=== PATIENT | male | born 1960 | race Caucasian/White ===

== ENCOUNTER → 2018-05-10 | Outpatient (CLI) | payer MEDICARE, BC ==
[2018-05-10] MEDS: LIDOCAINE WITH 8.4% SOD BICARB 3 ML DISP.SYRIN. INJ (08:00)
[2018-05-10] MEDS: IOHEXOL 300 MG/ML 10ML VIAL. IT (08:00)
== END | disposition home or self-care (01) ==
LOC: RAD 07:52
DX: M48.02 Spinal stenosis, cervical region (principal); M12.88 Other specific arthropathies, not elsewhere classified, other specified site
CPT/HCPCS: 72126; 72240; Q9967

== ENCOUNTER → 2018-05-22 | Outpatient (CLI) | payer MEDICARE, BC ==
[2018-05-22 15:50] LABS: ADD MAN DIFF? NO
[2018-05-22 15:53] LABS: BASO # 0.1 x10^3/uL (0.0-0.2); BASO % 1 % (0-3); EOS # 0.2 x10^3/uL (0.0-0.7); EOS % 2 % (0-3); HEMOGLOBIN 14.4 g/dL (13.0-17.5); LYMPH # 3.4 x10^3/uL (1.0-4.8); LYMPH % 42 % (24-48); MEAN CORPUSCULAR HEMOGLOBIN 33 pg (25-35); MEAN CORPUSCULAR HGB CONC 34 g/dL (31-37); MEAN CORPUSCULAR VOLUME 99 fL (79-100); MONO # 0.8 x10^3/uL (0.0-1.1); MONO % 10 % (0-9); NEUT # 3.7 x10^3uL (1.8-7.7); NEUT % 45 % (31-73); PLATELET COUNT 207 x10^3/uL (140-400); RED BLOOD COUNT 4.35 x10^6/uL (4.30-5.70); RED CELL DISTRIBUTION WIDTH 14.2 % (11.5-14.5); WHITE BLOOD COUNT 8.1 x10^3/uL (4.0-11.0)
[2018-05-22 16:16] LABS: ALBUMIN 3.4 g/dL (3.4-5.0); ALBUMIN/GLOBULIN RATIO 0.9 (1.0-1.7); ALK PHOS 43 U/L (46-116); ALT (SGPT) 27 U/L (16-63); ANION GAP 4 (6-14); AST (SGOT) 18 U/L (15-37); BLOOD UREA NITROGEN 25 mg/dL (8-26); BUN/CREATININE RATIO 17 (6-20); CALCIUM 8.9 mg/dL (8.5-10.1); CARBON DIOXIDE 31 mmol/L (21-32); CHLORIDE 105 mmol/L (98-107); CREATININE 1.5 mg/dL (0.7-1.3); GFR 48.6; GLUCOSE 122 mg/dL (70-99); POTASSIUM 4.5 mmol/L (3.5-5.1); SODIUM 140 mmol/L (136-145); TOTAL BILIRUBIN 0.4 mg/dL (0.2-1.0); TOTAL PROTEIN 7.1 g/dL (6.4-8.2)
[2018-05-24 01:14] LABS: MRSA BY PCR Negative (Negative)
== END | disposition home or self-care (01) ==
LOC: SURGPAT 14:22
DX: Z01.818 Encounter for other preprocedural examination (principal); M48.02 Spinal stenosis, cervical region
CPT/HCPCS: 36415; 80053; 85025; 87641

== ENCOUNTER 2018-06-02 07:16 | Inpatient (IN) | payer MEDICARE, BC ==
[2018-06-02] MEDS: IV RINGERS,LACTATED 1000ML 1,000 ML IV (07:00)
[~2018-06-02 07:16] MED LIST: LIDOCAINE 1% PF 2 ML VIAL. ID; MORPHINE SULFATE 2 MG/ML DISP.SYRIN. IV; fentaNYL PF VIAL 100 MCG/2 ML VIAL IV
[2018-06-02] MEDS ORDERED: PROPOFOL 20 ML IV (08:10)
[2018-06-02] MEDS ORDERED: DESFLURANE > 120 MINUTES IH (08:10)
[2018-06-02] MEDS ORDERED: ROCURONIUM 50 MG/5 ML VIAL. (08:10)
[2018-06-02] MEDS ORDERED: PROPOFOL 50 ML IV (08:10)
[2018-06-02] MEDS ORDERED: REMIFENTANIL 1 MG VIAL. IV ×2 (08:10→08:16)
[2018-06-02] MEDS ORDERED: KETOROLAC 30 MG/ML INJ FOR OR. INJ (08:11)
[2018-06-02] MEDS ORDERED: PHENYLEPHRINE 10 MG/ML VIAL. ×2 (08:11→08:15)
[2018-06-02] MEDS ORDERED: ONDANSETRON PF 4 MG/2 ML VIAL. (08:11)
[2018-06-02] MEDS ORDERED: DEXAMETHASONE SOD PHOS 20 MG/5 ML VIAL. (08:11)
[2018-06-02] MEDS ORDERED: LIDOCAINE 2% PF Vial for OR 5 ML VIAL. (08:11)
[2018-06-02] MEDS: SCOPOLAMINE 1.5MG PATCH. TD (08:16)
[2018-06-02] MEDS ORDERED: GLYCOPYRROLATE 1 MG/5 ML VIAL. (08:19)
[2018-06-02] MEDS: BUPIVAC MPF-EPI 0.5%-1:200000 30 ML VIAL. INJ (09:41)
[2018-06-02] MEDS: BACITRACIN 50,000 UNIT in IV NORMAL SALINE 1000ML BAG 1,000 ML IRR (09:41)
[2018-06-02] MEDS: GELATIN SPONGE SIZE 100. (09:41)
[2018-06-02] MEDS: THROMBIN TOPICAL 20,000 UNIT SPRAY.SYRN KIT TP (09:41)
[2018-06-02] MEDS ORDERED: fentaNYL PF VIAL 100 MCG/2 ML VIAL (11:21)
[2018-06-02] MEDS ORDERED: PROCHLORPERAZINE 10 MG/2 ML VIAL. (11:21)
[2018-06-02] MEDS ORDERED: CALCIUM CARBONATE 500 MG TAB.CHEW PO (11:30)
[2018-06-02] MEDS ORDERED: fentaNYL PF VIAL 100 MCG/2 ML VIAL IV (11:30)
[2018-06-02] MEDS ORDERED: MAGNESIUM HYDROXIDE 2,400 MG/30 ML ORAL.SUSP. PO (11:30)
[2018-06-02] MEDS ORDERED: SENNOSIDES/DOCUSATE 8.6/50MG TABLET. PO (11:30)
[2018-06-02] MEDS ORDERED: ACETAMINOPHEN 325 MG TABLET. PO (11:30)
[2018-06-02] MEDS ORDERED: 0.9 % SODIUM CHLORIDE 10 ML DISP.SYRIN. IV (11:30)
[2018-06-02] MEDS ORDERED: diphenhydrAMINE 50 MG/ML VIAL IV (11:30)
[2018-06-02] MEDS ORDERED: MAG HYDROX/ALUMINUM HYD/SIMETH 30 ML ORAL.SUSP PO (11:30)
[2018-06-02] MEDS ORDERED: diphenhydrAMINE HCL 25 MG CAPSULE PO (11:30)
[2018-06-02] MEDS: PROCHLORPERAZINE 10 MG/2 ML VIAL. IV (12:05)
[2018-06-02] MEDS: fentaNYL PF VIAL 100 MCG/2 ML VIAL IV ×2 (12:06→12:30)
[2018-06-02] MEDS: POTASSIUM CL 20MEQ D5-0.45NACL 1,000 ML IV (13:00)
[2018-06-02] MEDS ORDERED: ceFAZolin SODIUM 1 GM in IV DEXTROSE 5% 50 ML IV (14:00)
[2018-06-02] MEDS: GABAPENTIN 300 MG CAPSULE. PO ×3 (14:06→20:52)
[2018-06-02] MEDS: METHADONE 5 MG TABLET. PO ×3 (14:06→20:55)
[2018-06-02] MEDS: DOCUSATE SODIUM 100 MG CAPSULE. PO ×3 (14:07→20:56)
[2018-06-02] MEDS: HYDROcodone/APAP 7.5/325MG 1 TAB TABLET PO ×2 (15:35→21:30)
[2018-06-02] MEDS ORDERED: LISINOPRIL 10 MG TABLET PO (16:00)
[2018-06-02] MEDS: ceFAZolin SODIUM IV Push 1 GM VIAL. IVP (17:30)
[2018-06-02] MEDS: clonazePAM 1 MG TABLET PO (20:52)
[2018-06-02] MEDS: ALLOPURINOL 300 MG TABLET. PO (20:52)
[2018-06-02] MEDS: LISINOPRIL 10 MG TABLET PO (20:55)
[2018-06-02] MEDS: CYCLOBENZAPRINE 10 MG TABLET. PO (21:01)
[2018-06-03] MEDS: ceFAZolin SODIUM IV Push 1 GM VIAL. IVP ×2 (01:15→07:59)
[2018-06-03] MEDS: fentaNYL PF VIAL 100 MCG/2 ML VIAL IV (02:44)
[2018-06-03] MEDS: BENZOCAINE/MENTHOL LOZENGE. PO ×2 (05:49→07:58)
[2018-06-03] MEDS: HYDROcodone/APAP 7.5/325MG 1 TAB TABLET PO ×2 (06:38→11:06)
[2018-06-03] MEDS: PHENOL ORAL SPRAY 177ML BOTTLE. PO (06:39)
[2018-06-03] MEDS: GABAPENTIN 300 MG CAPSULE. PO (07:56)
[2018-06-03] MEDS: VITAMIN E 200 UNIT CAPSULE. PO (07:56)
[2018-06-03] MEDS: VITAMIN B COMPLEX TABLET. PO (07:56)
[2018-06-03] MEDS: busPIRone 5 MG TABLET. PO (07:56)
[2018-06-03] MEDS: ASPIRIN CHEWABLE 81 MG TABLET. PO (07:57)
[2018-06-03] MEDS: CHOLECALCIFEROL (VITAMIN D3) 1,000 UNIT TABLET PO (07:57)
[2018-06-03] MEDS: DOCUSATE SODIUM 100 MG CAPSULE. PO (07:57)
[2018-06-03] MEDS: METHADONE 5 MG TABLET. PO (07:58)
[2018-06-03] MEDS: TAMSULOSIN 0.4 MG CAP.ER.24H. PO (07:58)
[2018-06-03] MEDS: buPROPion XL 150 MG TAB.ER.24H. PO (07:59)
[2018-06-03] MEDS ORDERED: NON FORMULARY ITEM (Biotin 5,000 MCG) PO (09:00)
[2018-06-03] MEDS ORDERED: DOCUSATE SODIUM 250 MG PO (09:00)
[2018-06-03] MEDS: CYCLOBENZAPRINE 10 MG TABLET. PO (11:06)
== END 2018-06-03 11:23 | disposition home or self-care (01) | DRG 30 ==
LOC: OPSVCIP 07:16 → 4 NORTH 12:46
PROC: 0RG10A0 Fusion of Cervical Vertebral Joint with Interbody Fusion Device, Anterior Approach, Anterior Column, Open Approach (ICD-10-PCS; principal; 2018-06-02 08:30)
PROC: 0RB30ZZ Excision of Cervical Vertebral Disc, Open Approach (ICD-10-PCS; 2018-06-02 08:30)
PROC: 4A11X4G Monitoring of Peripheral Nervous Electrical Activity, Intraoperative, External Approach (ICD-10-PCS; 2018-06-02 08:30)
PROC: 5A09357 Assistance with Respiratory Ventilation, Less than 24 Consecutive Hours, Continuous Positive Airway Pressure (ICD-10-PCS; 2018-06-02 08:48)
DX: M54.12 Radiculopathy, cervical region (principal); M19.90 Unspecified osteoarthritis, unspecified site; M10.9 Gout, unspecified; M47.899 Other spondylosis, site unspecified
CPT/HCPCS: 76000; 97161-GP; A7015; C1713; J0690; J0780; J1100; J1885; J2001; J2405; J2704; J3010; J3490; J7030; J7120

== ENCOUNTER → 2018-08-15 | Outpatient (CLI) | payer MEDICARE, BC ==
[2018-06-03 10:59] VITALS: BP 123/66
[~2018-08-15] MED LIST changes: +ACET500T68 PO; +ALLO300T PO; +ASPI-630 PO; +BIOT25006 PO; +BUPR300T4 PO; +BUSP10TA PO; +CHOL500016 PO; +CLON1TAB4 PO; +CYCL10TA2 PO; +DOCU250C54 PO; +GABA-586 PO; +GABA600T91 PO; +GREE250C PO; +HYDR-2762 PO; +IBUP-1007 PO; -LIDOCAINE 1% PF 2 ML VIAL. ID; +LISI2.5T PO; +MELO7.5T29 PO; +METH5TAB2 PO; -MORPHINE SULFATE 2 MG/ML DISP.SYRIN. IV; +OMEG-117 PO; +PEG4000S8 PO; +SENN-101 PO; +TAMS0.4C2 PO; +TURM538C PO; +VITA150T PO; +VITA400C36 PO; +[UNRECOGNIZED DRUG - REMARK] PO; -fentaNYL PF VIAL 100 MCG/2 ML VIAL IV
--- NOTE | 2018-08-15 17:00 | KCIC ---
2 view study of the cervical spine Clinical indications: Status post cervical fusion. Follow-up study. COMPARISON: CT study cervical spine dated May 10, 2018. FINDINGS: Since the previous CT study, the patient has had anterior cervical fusion with surgical hardware and interbody disc space fusion device at the C6 and C7 levels. Alignment is normal and no discitis or osteolytic process or acute fracture or prevertebral soft tissue swelling is evident. IMPRESSION: Anterior cervical fusion at C6-7. Electronically signed by: Oj Escobedo MD (08/15/2018 4:56 PM) [id number]
== END | disposition home or self-care (01) ==
LOC: KCIC 13:16
PROVIDERS: ATTEND Neurological Surgery
DX: M43.22 Fusion of spine, cervical region (principal); Z98.890 Other specified postprocedural states
CPT/HCPCS: 72040

== ENCOUNTER → 2019-03-22 | Outpatient (CLI) | payer MEDICARE, BC ==
[2018-06-03 10:59] VITALS: BP 123/66
[~2019-03-22] MED LIST changes: +CLON1TAB11 PO; -CLON1TAB4 PO; -GABA-586 PO; +GABA300C18 PO; -HYDR-2762 PO; +HYDR-2765 PO
--- NOTE | 2019-03-22 13:11 | KCIC ---
EXAM: Renal sonogram. HISTORY: Renal failure. TECHNIQUE: Sonographic imaging of the kidneys and bladder was performed. COMPARISON: None. FINDINGS: The right kidney measures 12.3 cm [id number]. The left kidney measures 11.2 cm [id number]. There is renal cortical lobulation. No solid or cystic renal lesion is seen. The left renal parenchyma is slightly echogenic. The bladder is unremarkable. The ureteral jets are both seen. The prostate is enlarged, measuring 5.2 cm in maximum dimension with a volume of 47 cc. The aorta and inferior vena cava are predominantly obscured due to bowel gas. IMPRESSION: 1. Renal cortical lobulation. This may be developmental or due to scarring. 2. Slightly echogenic left renal parenchyma. This may be due to technique or medical renal disease. 3. Mild prostatomegaly. Electronically signed by: Pennie Garrison MD (03/22/2019 1:07 PM) [facility]
== END | disposition home or self-care (01) ==
LOC: KCIC US 09:26
PROVIDERS: ATTEND Internal Medicine Nephrology
DX: N17.8 Other acute kidney failure (principal); N40.0 Benign prostatic hyperplasia without lower urinary tract symptoms; Q63.1 Lobulated, fused and horseshoe kidney; E11.9 Type 2 diabetes mellitus without complications
CPT/HCPCS: 76770

== ENCOUNTER 2019-03-23 09:55 | Emergency (ER) | payer MEDICARE, BC ==
[~2019-03-23] VITALS: Ht 177.8 cm; Wt 100.7 kg
--- NOTE | 2019-03-23 10:49 | PHYS DOC ---
Past Medical History Past Medical History: Diabetes-Type II, Other Additional Past Medical Histor: chronic lumbar pain Past Surgical History: Other Additional Past Surgical Histo: lumbar fusion, neuro stimulator Alcohol Use: None Drug Use: None Adult General Chief Complaint Chief Complaint: UPPER EXTREMITY PAIN HPI HPI 58-year-old male presents to ER with complaints of right forearm pain which is been ongoing for the past blood weeks. Patient states he flew to [facility] and returned home on or 1918. He reports he flew into [place] and then drove back to his home here over weekend. Patient states he developed some right forearm pain following his trip and pain has been ongoing so he came to the ER for an ultrasound. Pt denies any flu or cold-like illness. Patient reports only sxs is rt forearm pain/swelling. Pt reports he uses his left hand for writing otherwise he uses his rt hand for everything. Pt denies any chest pain, palpitations, or shortness of air. Patient denies any lower extremity swelling or calf pain. Patient denies being a daily smoker, hormonal therapy, or previous history of clotting or bleeding disorders. Patient reports he did have a fall down a few steps a couple weeks ago but only injury from the fall is left arm pain which she sees a surgeon for tomorrow. Patient reports the pain in his right forearm started before that fall. Patient states he is on methadone but was prescribed hydrocodone for his fall injury and has been taking that daily. Patient denies any NSAIDs for pain as he has stage III kidney disease. Review of Systems Review of Systems Constitutional: Denies fever or chills [] Eyes: Denies change in visual acuity, redness, or eye pain [] HENT: Denies nasal congestion or sore throat [] Respiratory: Denies cough or shortness of breath [] Cardiovascular: Denies CP/palpitations GI: Denies abdominal pain, nausea, vomiting, bloody stools or diarrhea [] : Denies dysuria or hematuria [] Musculoskeletal: Denies back pain. Reports rt forearm pain/swelling- denies numbness/tingling. Reports lt upper pain from fall denies acute change in pain Integument: Denies rash or skin lesions [] Neurologic: Denies headache, focal weakness or sensory changes. Denies dizziness Endocrine: Denies polyuria or polydipsia [] All other systems were reviewed and found to be within normal limits, except as documented in this note. Allergies Allergies Allergies Coded Allergies Type Severity Reaction Last Updated Verified Sulfa (Sulfonamide Antibiotics) Allergy Severe "104.0 F temperature" 06/02/18 Yes latex Allergy Intermediate rash 06/02/18 Yes Physical Exam Physical Exam Constitutional: Well developed, well nourished, no acute distress, non-toxic appearance. [] HENT: Normocephalic, atraumatic, oropharynx moist, nose normal. [] Eyes: Pupils equal, conjunctiva normal, no discharge. [] Neck: Normal range of motion, no tenderness, supple, no stridor. [] Cardiovascular: Heart rate regular rhythm, no murmur [] Lungs & Thorax: Bilateral breath sounds clear to auscultation- resp. equal/nonlabored Abdomen: Bowel sounds normal, soft, no tenderness Skin: Warm, dry, no erythema, no rash. [] Back: Full ROM Extremities: No cyanosis, no clubbing, ROM intact. 2+ radial bilat. Tender in rt posterior forearm- rt forearm appears > lt forearm. Skin color symmetric bilat. upper extremities. Neurologic: Alert and oriented X 3, normal motor function, normal sensory function, no focal deficits noted. [] Psychologic: Affect normal, judgement normal, mood normal. [] Current Patient Data Vital Signs Vital Signs Date Time Temp Pulse Resp B/P (MAP) Pulse Ox O2 Delivery O2 Flow Rate FiO2 03/23/19 12:11 70 160/77 (104) 93 Venturi Mask 15.0 03/23/19 10:02 98.3 16 98.3 EKG EKG [] Radiology/Procedures Radiology/Procedures PROCEDURE: VENOUS UPPER EXTREMITY RIGHT Examination: Ultrasound right upper extremity venous duplex HISTORY: History of right upper extremity pain COMPARISON: None available. TECHNIQUE: Grayscale, color Doppler 2-D, spectral waveform analysis of the right upper extremity venous system were performed FINDINGS: The visualized internal jugular vein, subclavian vein, cephalic vein, brachial vein, basilic vein, axillary vein, radial, ulnar veins are patent. IMPRESSION: No evidence of deep venous thrombosis in the right upper extremity venous system Electronically signed by: Alex Wild MD (03/23/2019 12:39 PM) [facility] DICTATED and SIGNED BY: ALEX WILD MD DATE: 03/23/19 1239 PROCEDURE: FOREARM RIGHT Two-view right forearm study Clinical indications: Right forearm pain. Fall 2 weeks ago. FINDINGS: No acute fracture or dislocation or lytic process is evident. No periosteal reaction is seen. No right elbow joint effusion is seen. IMPRESSION: No acute fracture. Electronically signed by: Darlene Escobedo MD (03/23/2019 1:27 PM) [id number] DICTATED and SIGNED BY: DARLENE ESCOBEDO MD DATE: 03/23/19 1327 Course & Med Decision Making Course & Med Decision Making Pertinent Imaging studies reviewed. (See chart for details) Patient was evaluated in the ER for complaints of right forearm pain which is been ongoing for the past couple weeks. Patient had recently traveled and so had concerns for blood clot so ultrasound was obtained which was negative for acute findings or DVT. During discussion on ultrasound with patient's continued complaints of right posterior forearm pain offered x-ray for further evaluation and patient was agreeable with this plan. X-ray was obtained with no acute findings. Offered Sd wrap application to right forearm however patient preferred no wrap stating he would get a compression sleeve after being discharged. Patient advised on follow-up with orthopedics if symptoms persist for reevaluation and further care. Patient has pain medications at home and he was advised to take as prescribed. Patient remains PMS intact in right upper extremity with no change in condition. Education provided on signs and symptoms to return to ER for an discharge instructions were discussed. Dragon Disclaimer Dragon Disclaimer This electronic medical record was generated, in whole or in part, using a voice recognition dictation system. Departure Departure Impression: Primary Impression: Arm pain, right Disposition: 01 HOME, SELF-CARE Condition: STABLE Referrals: BLADIMIR HUITRON MD (PCP) CHELI RODRIGUEZ MD Additional Instructions: You were evaluated in the Emergency Department for complaints of right forearm pain. Ultrasound and x-rays were obtained both with no findings for fractures or blood clots. You can wear a compressive device such as an Sd wrap as needed for arm support. Avoid wrapping too tightly. If symptoms persist follow-up with an orthopedic doctor for reevaluation and further care as needed. Continue your home medications as prescribed for pain. Ice and/or heat compress to affected area every 3-4 hours for 20-30 minutes at a time. TONYA GRIGGS APRN March 23, 2019 10:49
[2019-03-23 12:11] VITALS: BP 160/77
--- NOTE | 2019-03-23 12:42 | RAD ---
Examination: Ultrasound right upper extremity venous duplex HISTORY: History of right upper extremity pain COMPARISON: None available. TECHNIQUE: Grayscale, color Doppler 2-D, spectral waveform analysis of the right upper extremity venous system were performed FINDINGS: The visualized internal jugular vein, subclavian vein, cephalic vein, brachial vein, basilic vein, axillary vein, radial, ulnar veins are patent. IMPRESSION: No evidence of deep venous thrombosis in the right upper extremity venous system Electronically signed by: Alex Wild MD (03/23/2019 12:39 PM) [email or web address]
--- NOTE | 2019-03-23 13:31 | RAD ---
Two-view right forearm study Clinical indications: Right forearm pain. Fall 2 weeks ago. FINDINGS: No acute fracture or dislocation or lytic process is evident. No periosteal reaction is seen. No right elbow joint effusion is seen. IMPRESSION: No acute fracture. Electronically signed by: Oj Escobedo MD (03/23/2019 1:27 PM) [id number]
== END 2019-03-23 13:42 | disposition home or self-care (01) ==
LOC: ER 09:55
DX: M79.631 Pain in right forearm (principal); E11.22 Type 2 diabetes mellitus with diabetic chronic kidney disease; N18.3 Chronic kidney disease, stage 3 (moderate); G89.29 Other chronic pain; Z88.2 Allergy status to sulfonamides; Z91.040 Latex allergy status; W18.39XA Other fall on same level, initial encounter; Y93.89 Activity, other specified; Y92.89 Other specified places as the place of occurrence of the external cause; Y99.8 Other external cause status
CPT/HCPCS: 73090; 93971; 99284-25

== ENCOUNTER 2019-11-02 10:06 | Emergency (ER) | payer MEDICARE, BC ==
[~2019-11-02] VITALS: Ht 177.8 cm; Wt 110.2 kg
[~2019-11-02 10:06] MED LIST changes: -CLON1TAB11 PO; +CLONAZEPAM1 MG PO; +VITA-8 PO; -VITA400C36 PO
[2019-11-02] MEDS ORDERED: IV NORMAL SALINE 1000ML BAG 1,000 ML IV SCH (10:19)
--- NOTE | 2019-11-02 10:23 | PHYS DOC ---
Past Medical History Past Medical History: Diabetes-Type II, Other Additional Past Medical Histor: chronic lumbar pain Past Surgical History: Other Additional Past Surgical Histo: lumbar fusion, neuro stimulator Alcohol Use: None Drug Use: None Adult General Chief Complaint Chief Complaint: ABDOMINAL PAIN [facility] HPI Patient is a 59-year-old male who presents with complaint of left-sided abdominal pain that has been ongoing for nearly 2 weeks. Patient states that pain is progressively getting worse. He states that he thinks that he may be a bit backed up because he has recently been placed on OxyContin. He states that he takes the pain medication for chronic sciatica. Patient rates the pain in his abdomen currently at about a 4 out of 10. He states the pain is worsened with walking and with bending over. He denies any vomiting but does indicate that he has been nauseated. He also states that he has not been moving his bowels very well.[] Review of Systems Review of Systems Constitutional: Denies fever or chills [] Respiratory: Denies cough or shortness of breath [] Cardiovascular: No additional information not addressed in HPI [] GI: Complains of left-sided abdominal pain with nausea. Denies vomiting or diarrhea [] : Denies dysuria or hematuria [] Musculoskeletal: Denies back pain or joint pain [] Integument: Denies rash or skin lesions [] Neurologic: Denies headache, focal weakness or sensory changes [] All other systems were reviewed and found to be within normal limits, except as documented in this note. Current Medications Current Medications Current Medications Medications (Trade) Dose Ordered Sig/Pattie Start Time Stop Time Status Last Admin Dose Admin Info (CONTRAST GIVEN -- Rx MONITORING) 1 each PRN DAILY PRN 11/02/19 11:30 11/04/19 11:29 Iohexol (Omnipaque 300 Mg/ml) 60 ml 1X ONCE 11/02/19 11:30 11/02/19 11:31 DC 11/02/19 11:28 60 ML Ondansetron HCl (Zofran) 4 mg 1X ONCE 11/02/19 10:30 11/02/19 10:31 DC 11/02/19 10:56 4 MG Sodium Chloride 1,000 ml @ 100 mls/hr Q10H 11/02/19 10:19 11/02/19 20:18 11/02/19 10:56 100 MLS/HR Allergies Allergies Allergies Coded Allergies Type Severity Reaction Last Updated Verified Sulfa (Sulfonamide Antibiotics) Allergy Severe "104.0 F temperature" 06/02/18 Yes latex Allergy Intermediate rash 06/02/18 Yes Physical Exam Physical Exam Constitutional: Well developed, well nourished, no acute distress, non-toxic appearance. [] HENT: Normocephalic, atraumatic, bilateral external ears normal, oropharynx moist, no oral exudates, nose normal. [] Eyes: PERRLA, EOMI, conjunctiva normal, no discharge. [] Neck: Normal range of motion, no tenderness, supple. [] Cardiovascular: Regular rate and rhythm[] Lungs & Thorax: Bilateral breath sounds clear to auscultation [] Abdomen: Bowel sounds normal, soft, with moderate left sided abdominal t enderness and positive rebound. [] Skin: Warm, dry, no erythema, no rash. [] Extremities: No tenderness, no cyanosis, no clubbing, ROM intact. [] Neurologic: Alert and oriented X 3, no focal deficits noted. [] Current Patient Data Vital Signs Vital Signs Date Time Temp Pulse Resp B/P (MAP) Pulse Ox O2 Delivery O2 Flow Rate FiO2 11/02/19 10:46 97.9 85 16 163/79 (107) 95 Room Air 97.9 Lab Values Laboratory Tests Test 11/02/19 10:42 White Blood Count 8.4 x10^3/uL (4.0-11.0) Red Blood Count 4.80 x10^6/uL (4.30-5.70) Hemoglobin 15.8 g/dL (13.0-17.5) Hematocrit 47.1 % (39.0-53.0) Mean Corpuscular Volume 98 fL (79-100) Mean Corpuscular Hemoglobin 33 pg (25-35) Mean Corpuscular Hemoglobin Concent 34 g/dL (31-37) Red Cell Distribution Width 13.7 % (11.5-14.5) Platelet Count 223 x10^3/uL (140-400) Neutrophils (%) (Auto) 44 % (31-73) Lymphocytes (%) (Auto) 49 % (24-48) H Monocytes (%) (Auto) 6 % (0-9) Eosinophils (%) (Auto) 1 % (0-3) Basophils (%) (Auto) 1 % (0-3) Neutrophils # (Auto) 3.7 x10^3/uL (1.8-7.7) Lymphocytes # (Auto) 4.1 x10^3/uL (1.0-4.8) Monocytes # (Auto) 0.5 x10^3/uL (0.0-1.1) Eosinophils # (Auto) 0.1 x10^3/uL (0.0-0.7) Basophils # (Auto) 0.0 x10^3/uL (0.0-0.2) Urine Collection Type Unknown Urine Color Yellow Urine Clarity Clear Urine pH 6.5 Urine Specific [place] <=1.005 Urine Protein Negative mg/dL (NEG-TRACE) Urine Glucose (UA) Negative mg/dL (NEG) Urine Ketones (Stick) Negative mg/dL (NEG) Urine Blood Negative (NEG) Urine Nitrite Negative (NEG) Urine Bilirubin Negative (NEG) Urine Urobilinogen Dipstick 0.2 mg/dL (0.2 mg/dL) Urine Leukocyte Esterase Negative (NEG) Urine RBC 0 /HPF (0-2) Urine WBC 0 /HPF (0-4) Urine Squamous Epithelial Cells None /LPF Urine Bacteria 0 /HPF (0-FEW) Sodium Level 140 mmol/L (136-145) Potassium Level 4.5 mmol/L (3.5-5.1) Chloride Level 103 mmol/L (98-107) Carbon Dioxide Level 29 mmol/L (21-32) Anion Gap 8 (6-14) Blood Urea Nitrogen 21 mg/dL (8-26) Creatinine 1.3 mg/dL (0.7-1.3) Estimated GFR (Cockcroft-Gault) 56.9 BUN/Creatinine Ratio 16 (6-20) Glucose Level 124 mg/dL (70-99) H Calcium Level 9.2 mg/dL (8.5-10.1) Total Bilirubin 0.5 mg/dL (0.2-1.0) Aspartate Amino Transferase (AST) 19 U/L (15-37) Alanine Aminotransferase (ALT) 27 U/L (16-63) Alkaline Phosphatase 47 U/L (46-116) Total Protein 7.6 g/dL (6.4-8.2) Albumin 3.8 g/dL (3.4-5.0) Albumin/Globulin Ratio 1.0 (1.0-1.7) Lipase 99 U/L (73-393) Laboratory Tests 11/02/19 10:42 Laboratory Tests 11/02/19 10:42 EKG EKG [] Radiology/Procedures Radiology/Procedures [] Impressions: PROCEDURE: CT ABD PELV W/ IV CONTRST ONLY CT ABD PELV W/ IV CONTRST ONLY History: Left-sided abdominal pain. Technique: After the administration of intravenous contrast, CT imaging was performed of the abdomen and pelvis. Multiplanar images are reviewed. Exposure: One or more of the following individualized dose reduction techniques were utilized for this examination: 1. Automated exposure control 2. Adjustment of the mA and/or kV according to patient size 3. Use of iterative reconstruction technique. Comparison: May 13, 2016 Findings: Lower chest: No consolidation or pleural effusion. 3 mm lingular pulmonary nodule (series 2 image 2), unchanged and likely benign given stability over time. Abdomen and pelvis: The liver, adrenal glands, pancreas and gallbladder are unremarkable. Splenic hypodensity measures 1 cm. Lobulated appearance of the kidneys, left greater than right. No hydronephrosis. No renal calculi. Right mid renal hypodensity measures 0.7 cm. Normal appendix. No evidence of bowel obstruction. Small duodenal diverticulum. No pathologic lymphadenopathy. No ascites. Right inguinal fat containing hernia. Small umbilical fat-containing hernia. Bones: L4-S1 posterior stabilization and interbody fusion. Spinal stimulator noted. Impression: 1. No acute intra-abdominal or pelvic pathology. 2. Small splenic hypodensity, likely hemangioma or cyst. 3. Small right renal hypodensity, may represent complicated cyst although too small to further characterize. If persistent clinical concern ultrasound may be of benefit. Electronically signed by: Hawk Ceja DO (11/02/2019 12:25 PM) [facility] Course & Med Decision Making Course & Med Decision Making Pertinent Labs and Imaging studies reviewed. (See chart for details) [] Dragon Disclaimer Dragon Disclaimer This electronic medical record was generated, in whole or in part, using a voice recognition dictation system. Departure Departure Impression: Primary Impression: Left sided abdominal pain Additional Impression: Constipation Disposition: 01 HOME, SELF-CARE Condition: STABLE Referrals: BLADIMIR HUITRON MD (PCP) Patient Instructions: Abdominal Pain, Constipation, Adult Scripts Lactulose (LACTULOSE) 20 Gm/30 Ml Solution 20 GM PO DAILY PRN for CONSTIPATION, #900 ML Prov: KAELYN CHAPMAN Jr. DO 11/02/19 Problem Qualifiers Additional Impression: Constipation Constipation type: drug induced constipation Qualified Codes: K59.03 - Fredrick g induced constipation KAELYN CHAPMAN Jr. DO Nov 02, 2019 10:23
[2019-11-02] MEDS ORDERED: ONDANSETRON PF 4 MG/2 ML VIAL. IV ONE (10:30)
[2019-11-02 11:02] LABS: BASO % 1 % (0-3); CALCIUM 9.2 mg/dL (8.5-10.1); CREATININE 1.3 mg/dL (0.7-1.3); EOS # 0.1 x10^3/uL (0.0-0.7); EOS % 1 % (0-3); GFR 56.9; HEMATOCRIT 47.1 % (39.0-53.0); HEMOGLOBIN 15.8 g/dL (13.0-17.5); LYMPH # 4.1 x10^3/uL (1.0-4.8); LYMPH % 49 % (24-48); MEAN CORPUSCULAR HEMOGLOBIN 33 pg (25-35); MEAN CORPUSCULAR HGB CONC 34 g/dL (31-37); MEAN CORPUSCULAR VOLUME 98 fL (79-100); MONO # 0.5 x10^3/uL (0.0-1.1); MONO % 6 % (0-9); NEUT # 3.7 x10^3/uL (1.8-7.7); NEUT % 44 % (31-73); PLATELET COUNT 223 x10^3/uL (140-400); POTASSIUM 4.5 mmol/L (3.5-5.1); RED CELL DISTRIBUTION WIDTH 13.7 % (11.5-14.5); WHITE BLOOD COUNT 8.4 x10^3/uL (4.0-11.0)
[2019-11-02 11:07] LABS: ALBUMIN 3.8 g/dL (3.4-5.0); BILIRUBIN,URINE NEGATIVE (NEG); CLARITY,URINE CLEAR; COLOR,URINE YELLOW; NITRITE,URINE NEGATIVE (NEG); PH,URINE 6.5; PROTEIN,URINE NEGATIVE (NEG-TRACE); TOTAL BILIRUBIN 0.5 mg/dL (0.2-1.0); TOTAL PROTEIN 7.6 g/dL (6.4-8.2); UROBILINOGEN,URINE 0.2 mg/dL (0.2 mg/dL)
[2019-11-02 11:27] LABS: BACTERIA,URINE 0 /HPF (0-FEW); RBC,URINE 0 /HPF (0-2); WBC,URINE 0 /HPF (0-4)
[2019-11-02] MEDS ORDERED: IOHEXOL 300 MG/ML 100ML VIAL. IV ONE (11:30)
[2019-11-02] MEDS ORDERED: CONTRAST GIVEN. MC PRN (11:30)
--- NOTE | 2019-11-02 12:28 | RAD ---
CT ABD PELV W/ IV CONTRST ONLY History: Left-sided abdominal pain. Technique: After the administration of intravenous contrast, CT imaging was performed of the abdomen and pelvis. Multiplanar images are reviewed. Exposure: One or more of the following individualized dose reduction techniques were utilized for this examination: 1. Automated exposure control 2. Adjustment of the mA and/or kV according to patient size 3. Use of iterative reconstruction technique. Comparison: May 13, 2016 Findings: Lower chest: No consolidation or pleural effusion. 3 mm lingular pulmonary nodule (series 2 image 2), unchanged and likely benign given stability over time. Abdomen and pelvis: The liver, adrenal glands, pancreas and gallbladder are unremarkable. Splenic hypodensity measures 1 cm. Lobulated appearance of the kidneys, left greater than right. No hydronephrosis. No renal calculi. Right mid renal hypodensity measures 0.7 cm. Normal appendix. No evidence of bowel obstruction. Small duodenal diverticulum. No pathologic lymphadenopathy. No ascites. Right inguinal fat containing hernia. Small umbilical fat-containing hernia. Bones: L4-S1 posterior stabilization and interbody fusion. Spinal stimulator noted. Impression: 1. No acute intra-abdominal or pelvic pathology. 2. Small splenic hypodensity, likely hemangioma or cyst. 3. Small right renal hypodensity, may represent complicated cyst although too small to further characterize. If persistent clinical concern ultrasound may be of benefit. Electronically signed by: Hawk Ceja DO (11/02/2019 12:25 PM) [facility]
[2019-11-02] MEDS ORDERED: LACT20SO PO (12:51)
[2019-11-02 13:00] VITALS: BP 139/66
[2019-11-02] MEDS ORDERED: METHYLNALTREXONE 12 MG/0.6 ML VIAL. SQ ONE (13:00)
== END 2019-11-02 13:22 | disposition home or self-care (01) ==
LOC: ER 10:06
DX: K59.03 Drug induced constipation (principal); E11.9 Type 2 diabetes mellitus without complications; G89.29 Other chronic pain; M54.5 Low back pain; Z88.2 Allergy status to sulfonamides; Z91.040 Latex allergy status
CPT/HCPCS: 36415; 74177; 80053; 81001; 83690; 85025; 96372; 96374; 99285; J2212; J2405; J7030; Q9967

== ENCOUNTER → 2020-01-23 | Outpatient (CLI) | payer OTHER, MEDICARE, BC ==
[~2020-01-23] MED LIST changes: -BUPR300T4 PO; +BUPR300T92 PO; +LACT20SO PO
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
== END ==
LOC: KCIC CT 12:56
PROVIDERS: ATTEND Nurse Practitioner Family
DX: M47.812 Spondylosis without myelopathy or radiculopathy, cervical region (principal); M25.78 Osteophyte, vertebrae; M48.02 Spinal stenosis, cervical region
CPT/HCPCS: 72125

== ENCOUNTER 2020-12-08 23:00 | Emergency (ER) | payer MEDICARE, BC ==
[2019-11-02 13:00] VITALS: BP_DIAS 66
[~2020-12-08] VITALS: Ht 177.8 cm; Wt 108.8 kg
[~2020-12-08 23:00] MED LIST changes: +DOCU250C15 PO; -DOCU250C54 PO
[2020-12-08 23:10] VITALS: BP_SYST 144
--- NOTE | 2020-12-09 00:22 | PHYS DOC ---
Past Medical History Past Medical History: Diabetes-Type II, Sciatica, Other Additional Past Medical Histor: chronic lumbar pain, PA[facility] [place], NEUROPATHY TREATMENT Past Surgical History: Other Additional Past Surgical Histo: lumbar fusion, neuro stimulator Smoking Status: Never Smoker Alcohol Use: None Drug Use: None General Adult EDM: Chief Complaint: LOWER EXT PAIN HPI: HPI: Patient is a 60 year old male with history of diabetes type 2, neuropathy to bilateral lower extremities, sciatica, who presents to the ED today complaining of moderate firing pain to bilateral lower extremities that began this afternoon after having Qutenza patch treatment bilateral lower extremities for neuropathy. Treatment was done at the pain clinic. Patient states since this afternoon he feels his feet are on fire shooting pain making him jerk his feet several times that he can not sleep. He states he already took Dilaudid 4 mg which did not help Of note patient was throwing himself on the floor in the waiting room. Review of Systems: Review of Systems: Constitutional: Denies fever or chills. [] Musculoskeletal: reports bilateral feet pain. Integument: Denies rash. [] Neurologic: Denies headache, focal weakness or sensory changes. [] Psychiatric: Denies depression or anxiety. [] Heart Score: Risk Factors: Risk Factors: DM, Current or recent (<one month) smoker, HTN, HLP, family history of CAD, obesity. Risk Scores: Score 0 - 3: 2.5% MACE over next 6 weeks - Discharge Home Score 4 - 6: 20.3% MACE over next 6 weeks - Admit for Clinical Observation Score 7 - 10: 72.7% MACE over next 6 weeks - Early Invasive Strategies Current Medications: Current Medications Medications (Trade) Dose Ordered Sig/[facility] Start Time Stop Time Status Last Admin Dose Admin Diazepam (Valium) 5 mg 1X ONCE 12/09/20 00:30 12/09/20 00:31 Ketorolac Tromethamine (Toradol Im) 60 mg 1X ONCE 12/09/20 00:30 12/09/20 00:31 Lidocaine (Lidoderm) 2 patch 1X ONCE 12/09/20 00:30 12/09/20 00:31 Allergies: Allergies: Allergies Coded Allergies Type Severity Reaction Last Updated Verified Sulfa (Sulfonamide Antibiotics) Allergy Severe "104.0 F temperature" 06/02/18 Yes latex Allergy Intermediate rash 06/02/18 Yes Physical Exam: PE: Constitutional: Well developed, well nourished, no acute distress, non-toxic appearance. [] Skin: Warm, dry, no erythema, no rash. [] Back: No tenderness, no CVA tenderness. [] Extremities: Patient is jerking bilateral feet randomly, complains of moderate tenderness even before you touch his feet, he states they feel like they aer on fire, no cyanosis, no clubbing, ROM intact, no edema. +2 bilateral pedal pulses Neurologic: Alert and oriented X 3, normal motor function, normal sensory function, no focal deficits noted. [] Psychologic: Affect normal, judgement normal, mood normal. [] Current Patient Data: Vital Signs: Vital Signs Date Time Temp Pulse Resp B/P (MAP) Pulse Ox O2 Delivery O2 Flow Rate FiO2 12/08/20 23:10 98.0 89 16 144/ 96 Room Air 98.0 EKG: EKG: [] Radiology/Procedures: Radiology/Procedures: [] Course & Med Decision Making: Course & Med Decision Making Pertinent Labs and Imaging studies reviewed. (See chart for details) This is a 60-year-old male patient presented to the ED today with bilateral feet pain that began today after having Qutenza patch treatment for neuropathy. On physical exam patient is jerking his feet randomly. He rarely takes Dilaudid which she takes for chronic pain. He is already on Lyrica. Is picking something to help him sleep. We talked about other options including aorw-mxs-hxlrnxl medicines which he stated we will not work. Offered him 5 mg Valium and Toradol. He requested Lidoderm patches which were applied on his feet and he was discharged home [place] Disclaimer: Demetrius Disclaimer: This electronic medical record was generated, in whole or in part, using a voice recognition dictation system. Departure Departure Impression: Primary Impression: Diabetic neuropathy, painful Disposition: 01 DC HOME SELF CARE/HOMELESS Condition: STABLE Referrals: BLADIMIR HUITRON MD (PCP) follow up with your doctor Patient Instructions: Diabetic Neuropathy Additional Instructions: You were evaluated in the medicine for neuropathy pain. Please continue following up with the pain clinic and taking your pain medicine as ordered by your own doctor. LEA WALL APRN Dec 09, 2020 00:22
[2020-12-09] MEDS ORDERED: LIDOCAINE (700MG/PATCH) PATCH. TD ONE (00:30)
[2020-12-09] MEDS ORDERED: diazePAM 5 MG TABLET PO ONE (00:30)
[2020-12-09] MEDS ORDERED: KETOROLAC 60 MG/2 ML VIAL. IM ONE (00:30)
== END 2020-12-09 00:50 | disposition home or self-care (01) ==
LOC: ER 23:00
DX: E11.40 Type 2 diabetes mellitus with diabetic neuropathy, unspecified (principal); G89.29 Other chronic pain; Z88.2 Allergy status to sulfonamides; Z91.040 Latex allergy status
CPT/HCPCS: 99283

== ENCOUNTER → 2021-07-13 | Outpatient (CLI) | payer MEDICARE, BC ==
[2019-11-02 13:00] VITALS: BP_DIAS 66
[~2021-07-13] MED LIST changes: -DOCU250C15 PO; +DOCU250C76 PO; +IOHEXOL 300 MG/ML 50 ML VIAL. INT ART ONE; +LIDOCAINE 1% Multi-Dose 20 ML VIAL. ID ONE; -LISI2.5T PO; +LISI2.5T12 PO; +METH-570 PO; -METH5TAB2 PO; +methylPREDNISolone ACETATE 40 MG/ML VIAL. INT ART ONE
--- NOTE | 2021-07-13 17:18 | KCIC ---
IR ARTHROCENTESIS ASP/INJ RIGHT 07/13/2021 2:35 PM Comparison: None. Indication: Right hip pain. Technique: Informed verbal and written consent was obtained after the explanation of risks, benefits, and possib le complications. Prior to the procedure, final verification was performed. Utilizing sterile technique, a right hip joint injection was performed under fluoroscopy. 1% Lidocain e was administered as a local anesthetic. A 22-gauge spinal needle was inserted into the joint capsul e under fluoroscopic guidance. 2 cc nonionic contrast was injected into the joint space. 80 mg Depo-M edrol and 5 mL lidocaine injected into the joint space. The patient tolerated the procedure well, and there were no immediate complications. Fluoroscopy time: 18 seconds Number of images: 1 Impression: Successful right hip steroid injection under fluoroscopic guidance. Electronically signed by: Marisol Fierro MD (07/13/2021 5:16 PM) [id number]
== END | disposition home or self-care (01) ==
LOC: KCIC 14:21
PROVIDERS: ATTEND Orthopaedic Surgery
DX: G89.29 Other chronic pain (principal); M25.551 Pain in right hip; I10 Essential (primary) hypertension; M19.90 Unspecified osteoarthritis, unspecified site; G47.30 Sleep apnea, unspecified; F41.9 Anxiety disorder, unspecified; F32.9 Major depressive disorder, single episode, unspecified; Z79.82 Long term (current) use of aspirin; Z79.899 Other long term (current) drug therapy; Z98.890 Other specified postprocedural states; Z91.040 Latex allergy status; Z88.2 Allergy status to sulfonamides
CPT/HCPCS: 20610; 77002; J1030; J3490; Q9967

== ENCOUNTER → 2021-08-03 | Outpatient (CLI) | payer MEDICARE, BC ==
[2019-11-02 13:00] VITALS: BP_DIAS 66
[~2021-08-03] MED LIST changes: +IOHEXOL 300 MG/ML 100ML VIAL. IV ONE; -IOHEXOL 300 MG/ML 50 ML VIAL. INT ART ONE; -LIDOCAINE 1% Multi-Dose 20 ML VIAL. ID ONE; -SENN-101 PO; +SENN-209 PO; -methylPREDNISolone ACETATE 40 MG/ML VIAL. INT ART ONE
--- NOTE | 2021-08-03 16:06 | KCIC ---
CT lumbar spine with and without IV contrast and without comparison for low back pain with right radi culopathy, right hip pain, prior back fusion. TECHNIQUE: Contiguous axial CT images are obtained through the lumbar spine both before and after adm inistration of IV contrast in the portal venous phase. Sagittal and coronal reformations are evaluate d. FINDINGS: No significant soft tissue abnormalities. Nerve stimulator is present. There are postsurgic al changes of by particular pedicle screw and carly fixation of L4-S1. Also bilateral L5 and S1 laminec rito No areas of abnormal contrast enhancement are identified. There is no alignment abnormality of t he lumbar spine. Mild narrowing at L2-3 and L5-S1 intervertebral disc space, with relative preservati on of the remaining disc spaces. There is artifact throughout the lower lumbar spine from the patient 's fusion hardware. No evidence of bony canal stenosis at any level. No suspicious fluid collections. No unexpected radiopaque foreign bodies. At T12-L1, no significant disc bulge or protrusion. No significant bony canal stenosis. No significan t neural foraminal narrowing. Minimal facet arthrosis. At L1-2, no significant disc bulge or protrusion. No significant central canal stenosis. No significa nt neural foraminal narrowing. Mild bilateral facet arthrosis, and mild bilateral ligamentum flavum h ypertrophy. At L2-3, there is a fusiform disc disc osteophyte complex, resulting in severe right neural foraminal narrowing. Left neural foramen appears patent. Moderate bilateral facet arthrosis and ligamentum fla vum hypertrophy, creating a trefoil configuration of the central spinal canal where there appears to be at least moderate stenosis. At L3-4, mild fusiform disc bulge with no significant foraminal narrowing. Once again moderate facet arthrosis and mild ligamentum flavum hypertrophy result in mild trefoil configuration with mild centr al canal stenosis. L4-5, no significant disc bulge or herniation. No significant neural foraminal narrowing. Wide patenc y of the central canal. At L5-S1, no significant disc bulge or herniation. There is pcla-mj-[id number] narrowing of the left ne ural foramen due to osteophyte formation. Right neural foramen is patent. No significant central candelaria l stenosis. IMPRESSION: 1. Moderate central spinal canal stenosis at L2-3, along with severe right neuroforaminal narrowing a t this level. Findings are attributable to discussed by complex as well as facet arthrosis and ligame ntum flavum hypertrophy. 2. Postsurgical changes of posterior pedicle screw and carly fixation of L4-S1 with laminectomy at L5. No evidence of postsurgical complication. PQRS Compliance Statement: One or more of the following individualized dose reduction techniques were utilized for this examinat ion: 1. Automated exposure control 2. Adjustment of the mA and/or kV according to patient size 3. Use of iterative reconstruction technique Electronically signed by: Phong Garcia MD (08/03/2021 4:04 PM) [id number]
== END ==
LOC: KCIC CT 10:41
PROVIDERS: ATTEND Orthopaedic Surgery
DX: M47.25 Other spondylosis with radiculopathy, thoracolumbar region (principal); M48.07 Spinal stenosis, lumbosacral region; M25.78 Osteophyte, vertebrae
CPT/HCPCS: 72133; Q9967

== ENCOUNTER → 2021-08-28 | Outpatient (CLI) | payer MEDICARE, BC ==
[2019-11-02 13:00] VITALS: BP_DIAS 66
[~2021-08-28] MED LIST changes: +CONTRAST GIVEN. MC PRN; +IOHEXOL 180 MG/ML 10 ML VIAL. IJ ONE; -IOHEXOL 300 MG/ML 100ML VIAL. IV ONE; +LIDOCAINE 1% Multi-Dose 20 ML VIAL. INJ ONE
--- NOTE | 2021-08-28 10:58 | RAD ---
EXAM: Fluoroscopic guided lumbar puncture for CT myelography; lumbar spine CT myelogram. HISTORY: Lower back pain and lower extremity radiculopathy. TECHNIQUE: The risks of the procedure discussed with the patient and written and verbal consent was o btained. A timeout was performed. The patient was placed prone position on the fluoroscopy table and a site overlying L4-L5 was selected for needle entry. The skin in this location was sterilely prepped , draped and infiltrated with 1 percent lidocaine. A 25-gauge needle was advanced into the thecal sac and appropriate needle tip position was confirmed with spontaneous yield of CSF within the needle hu b. 15 cc Isovue 180 intrathecal contrast was injected into the thecal sac. The needle was removed and a sterile bandage was placed at the needle entry site. Prone and upright neutral, flexion and extens ion fluoroscopic images were obtained. A total of 5 fluoroscopic images were obtained for total fluor oscopy time of 0.7 minutes. The patient was transferred to the CT suite for the post injection CT por tion of the exam. The patient tolerated the procedure without complication and was discharged in stab le condition. *One or more of the following individualized dose reduction techniques were utilized for this examina tion: 1. Automated exposure control. 2. Adjustment of the mA and/or kV according to patient size. 3. Use of iterative reconstruction technique. COMPARISON: CT dated 08/03/2021. FINDINGS: There is instrumented posterior spinal fusion with disc space fusion device placement and l aminectomy decompression at L4-S1. There is no evidence of instrumentation fracture or loosening. The re is minimal lumbar dextrocurvature. There is 2 mm retrolisthesis of L1 on L2 and 3 mm retrolisthesi s of L2 on L3. This is not change between flexion and extension. There is no evidence of motion at th e fused levels between flexion and extension. There is multilevel endplate remodeling. This is most s ignificant at L2-L3. There is associated disc space narrowing, vacuum phenomenon and Schmorl's node f ormation at this level. There are few additional small endplate Schmorl's nodes. There is no suspicio us lytic or sclerotic osseous lesion. There is incidental bilateral posterior dependent and basilar atelectasis and pleural parenchymal sca rring. There is degenerative subchondral sclerosis and spurring involving the sacroiliac joints. Ther e is a bridging osteophyte involving the right sacroiliac joint. There is partial visualization of a spinal stimulator. The leads extend within the posterior back soft tissues beyond the superior margin of the [id number]. The conus terminates at L1-L2. There aren't prostate calcifications. 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 There is mini mal retrolisthesis. There is minimal facet arthropathy. There is no stenosis. At L2-L3, there is a diffuse disc bulge and endplate osteophytosis. There is mild retrolisthesis. The re is mild bilateral facet arthropathy. There is mild bilateral foraminal stenosis. There is mild carlitos tral canal stenosis. At L3-L4, there is a diffuse disc bulge and endplate remodeling. There is moderate right and mild lef t facet arthropathy. There is prominent dorsal epidural fat. There is a focus of gas within the right lateral aspect of the central canal due to suspected vacuum phenomenon from the adjacent facet joint s. There may be an associated synovial cyst in this location. There is moderate left greater than rig ht foraminal stenosis. There is mild central canal stenosis and narrowing of the right lateral recess . At L4-L5, there is instrumented fusion and laminectomy decompression. There is mild bilateral foramin al stenosis. At L5-S1, there is instrumented fusion and laminectomy decompression. There is endplate remodeling. T here is mild left foraminal stenosis. The left aspect of the disc space at this level extends to the left extraforaminal disc margin, but does not appear to encroach on the neural foramen. IMPRESSION: 1. Instrumented posterior spinal fusion with disc space fusion device placement and laminotomy decomp ression at L4-S1. There is no evidence of instrumentation loosening. 2. Multilevel degenerative change involving the lumbar spine, described in detail above. This is asso ciated with mild bilateral foraminal and central canal stenosis at L2-L3, moderate left greater than right foraminal and mild central canal stenosis with narrowing of the right lateral recess at L3-L4, mild bilateral foraminal stenosis at L4-L5, and mild left foraminal stenosis at L5-S1. Electronically signed by: Pennie Garrison MD (08/28/2021 10:56 AM) [id number]
== END | disposition home or self-care (01) ==
LOC: RAD 09:12
PROVIDERS: ATTEND Neurological Surgery
DX: M47.26 Other spondylosis with radiculopathy, lumbar region (principal); M48.061 Spinal stenosis, lumbar region without neurogenic claudication; I10 Essential (primary) hypertension; G47.30 Sleep apnea, unspecified; M19.90 Unspecified osteoarthritis, unspecified site; F41.9 Anxiety disorder, unspecified; F32.9 Major depressive disorder, single episode, unspecified; Z79.899 Other long term (current) drug therapy; Z98.890 Other specified postprocedural states; Z79.82 Long term (current) use of aspirin; Z88.2 Allergy status to sulfonamides; Z91.040 Latex allergy status
CPT/HCPCS: 62304; 72132; J3490; Q9965